=== PATIENT | female | born 1970 | race Two or more races ===

== ENCOUNTER 2020-07-27 14:09 | Emergency (ER) | payer BC ==
[2020-07-27] MEDS ORDERED: Acetaminophen 500 MG Tab PO ONE (14:45)
[2020-07-27] MEDS ORDERED: Bacitracin Oint 1 GM U/D Packet TOP ONE (14:45)
[2020-07-27] MEDS ORDERED: Ondansetron 4 MG Tab.DIS PO ONE (14:45)
[2020-07-27] MEDS ORDERED: Diphtheria,Pertussis(Acell),Tetanus Vaccine 0.5 ML Syringe IM ONE (14:50)
--- NOTE | 2020-07-27 14:53 | EDM.PDOC ---
ED HPI GENERAL MEDICAL PROBLEM - General Chief Complaint: Head Injury Stated Complaint: FELL HIT FOREHEAD AND NOSE Time Seen by Provider: 07/27/20 14:35 Source of Information: Reports: Patient, Old Records, RN History Limitations: Reports: No Limitations - History of Present Illness INITIAL COMMENTS - FREE TEXT/NARRATIVE: 49 yo female was going to give her 8 yo daughter a piggy back ride and when the daughter jumped onto mom's back mom fell forward hitting her face on the ground. There was no LOC or vomiting or resulting neck pain. She does have some nausea and a HILL. Has some abrasions of her RUE and face. She is not on any anticoagulants. 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 (see below) (cleaned wounds a little) - Related Data Allergies Allergy/AdvReac Type Severity Reaction Status Date / Time acetaminophen [From Vicodin] AdvReac Nausea Verified 07/27/20 14:29 hydrocodone [From Vicodin] AdvReac Nausea Verified 07/27/20 14:29 Home Meds: Home Meds Ondansetron [Zofran ODT] 4 mg PO Q6H PRN #7 tab.dis 07/27/20 [Rx] Pantoprazole Sodium [Protonix] 40 mg PO DAILY 07/27/20 [History] Past Medical History HEENT History: Reports: Impaired Vision Gastrointestinal History: Reports: GERD Genitourinary History: Reports: None 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: Endocrine/Metabolic History: Reports: Obesity/BMI 30+ - Infectious Disease History Infectious Disease History: Reports: Chicken Pox, Shingles - Past Surgical History Head Surgeries/Procedures: Reports: None HEENT Surgical History: Reports: None GI Surgical History: Reports: None Female Surgical History: Reports: Section, D&C Endocrine Surgical History: Reports: None Dermatological Surgical History: Reports: None Social & Family History - Tobacco Use Tobacco Use Status *Q: Never Tobacco User Second Hand Smoke Exposure: No - Caffeine Use Caffeine Use: Reports: Tea - Recreational Drug Use Recreational Drug Use: No ED ROS GENERAL - Review of Systems Review Of Systems: See Below Constitutional: Reports: No Symptoms HEENT: Reports: No Symptoms Respiratory: Reports: No Symptoms GI/Abdominal: Reports: Nausea. Denies: Vomiting : Reports: No Symptoms Musculoskeletal: Reports: No Symptoms. Denies: Neck Pain Skin: Reports: Wound (abrasions RUE and face) Neurological: Reports: Headache ED EXAM, HEAD INJURY - Physical Exam Exam: See Below Exam Limited By: No Limitations General Appearance: Alert, WD/WN, No Apparent Distress Head: Normocephalic, Facial Abrasions Eyes: Bilateral Eye: EOMI, Normal Inspection, PERRL Ears: Normal External Exam, Normal Canal, Hearing Grossly Normal, Normal TMs Nose: Normal Inspection, No Blood Throat/Mouth: Normal Inspection, Normal Lips, Normal Oropharynx, Normal Voice, No Airway Compromise Neck: Non-Tender, Full Range of Motion, Normal Inspection. No: Stiff Neck, Tenderness, Tender Lateral Respiratory: No Respiratory Distress Cardiovascular: Regular Rate, Rhythm Extremities: Normal Inspection, Normal Range of Motion, Non-Tender, No Pedal Edema. No: Pedal Edema Neurologic: nitrogen operator II-XII nml As Tested, No Motor/Sensory Deficits, Alert, Normal Mood/Affect, Oriented x 3 Skin: Normal Color, Warm/Dry, Other (abrasions of face and R forearm) - Hui Coma Score Best Eye Response ([place]): (4) Open Spontaneously Best Verbal Response ([place]): (5) Oriented Best Motor Response ([place]): (6) Obeys Commands Course - Vital Signs Last Recorded V/S: Last Vital Signs Temp 36.4 C 07/27/20 14:35 Pulse Resp 16 07/27/20 14:35 BP 127/73 07/27/20 14:35 Pulse Ox - Orders/Labs/Meds Orders: Active Orders 24 hr Category Date Time Status Vaccines to be Administered [RC] PER UNIT ROUTINE Care 07/27/20 14:50 Active Meds: Medications Discontinued Medications Generic Name Dose Route Start Last Admin Trade Name Freq PRN Reason Stop Dose Admin Acetaminophen 1,000 mg 07/27/20 14:45 07/27/20 14:51 Acetaminophen 500 Mg Tab PO 07/27/20 14:46 Not Given ONETIME ONE Bacitracin 3 dose 07/27/20 14:45 07/27/20 14:53 Bacitracin Oint 1 Gm U/D Packet TOP 07/27/20 14:46 3 dose ONETIME ONE Administration Diphtheria/Tetanus/Acell Pertussis 0.5 ml 07/27/20 14:50 07/27/20 14:58 Diphtheria,Pertussis(Acell),Tetanus Vaccine 0.5 Ml Syringe IM 07/27/20 14:51 0.5 ml .ONCE ONE Administration Ibuprofen 400 mg 07/27/20 15:23 Ibuprofen 400 Mg Tab PO 07/27/20 15:24 ONETIME ONE Ondansetron HCl 4 mg 07/27/20 14:45 07/27/20 14:52 Ondansetron 4 Mg Tab.Dis PO 07/27/20 14:46 4 mg ONETIME ONE Administration Departure - Departure Time of Disposition: 15:30 Disposition: Home, Self-Care 01 Condition: Fair Clinical Impression: Abrasions of multiple sites Mild concussion Qualifiers: Encounter type: initial encounter Loss of consciousness presence/duration: without LOC Qualified Code(s): S06.0X0A - Concussion without loss of consciousness, initial encounter Contusion of face Qualifiers: Encounter type: initial encounter Qualified Code(s): S00.83XA - Contusion of other part of head, initial encounter - Discharge Information *PRESCRIPTION DRUG MONITORING PROGRAM REVIEWED*: Not Applicable *COPY OF PRESCRIPTION DRUG MONITORING REPORT IN PATIENT LAURA: Not Applicable Prescriptions: Ondansetron [Zofran ODT] 4 mg PO Q6H PRN #7 tab.dis PRN Reason: Nausea Instructions: Concussion, Adult, [id number] Referrals: PCP,None [Primary Care Provider] - Forms: ED Department Discharge Additional Instructions: Use Zofran as needed for nausea control. Take acetaminophen and/or ibuprofen for headache control. Rest lying down until your headache stays away. Recheck if worse. Sepsis Event Note (ED) - Evaluation Sepsis Screening Result: No Definite Risk - Focused Exam Vital Signs: Vital Signs Temp Resp BP 07/27/20 14:35 36.4 C 16 127/73 07/27/20 14:30 36.4 C 16 127/73 - My Orders Last 24 Hours: My Active Orders 07/27/20 14:50 Vaccines to be Administered [RC] PER UNIT ROUTINE - Assessment/Plan Last 24 Hours: My Active Orders 07/27/20 14:50 Vaccines to be Administered [RC] PER UNIT ROUTINE
[2020-07-27] MEDS ORDERED: Ibuprofen 400 MG Tab PO ONE (15:23)
== END 2020-07-27 15:34 | disposition home or self-care (01) ==
LOC: JP.ED 14:09
DX: S06.0X0A Concussion without loss of consciousness, initial encounter (principal); S00.83XA Contusion of other part of head, initial encounter; S50.811A Abrasion of right forearm, initial encounter; K21.9 Gastro-esophageal reflux disease without esophagitis; E66.9 Obesity, unspecified; Z68.32 Body mass index [BMI] 32.0-32.9, adult; Z88.6 Allergy status to analgesic agent; Z88.5 Allergy status to narcotic agent; Z23 Encounter for immunization; W22.8XXA Striking against or struck by other objects, initial encounter
CPT/HCPCS: 90471; 90715; 99283; A9270